=== PATIENT | female | born 1990 | race Asian ===

== ENCOUNTER 2025-08-28 06:22 | Emergency (ER) | payer SELFPAY ==
[~2025-08-28] VITALS: Ht 160 cm; Wt 56.8 kg
[2025-08-28 06:28] VITALS: BP 125/73; PULSE 92; RESP 16; TEMP 98.3; O2SAT 97
[2025-08-28] MEDS: ACETAMINOPHEN 500 MG TABLET PO ONE (07:00)
[2025-08-28] MEDS ORDERED: ACET-66 PO (07:15)
[2025-08-28] MEDS ORDERED: LORA1TAB25 PO (07:15)
== END 2025-08-28 07:34 | disposition home or self-care (01) ==
LOC: EMS 06:22
DX: S63.501A Unspecified sprain of right wrist, initial encounter (principal); S00.03XA Contusion of scalp, initial encounter; S80.01XA Contusion of right knee, initial encounter; R22.31 Localized swelling, mass and lump, right upper limb; F43.9 Reaction to severe stress, unspecified; V89.2XXA Person injured in unspecified motor-vehicle accident, traffic, initial encounter; Y93.89 Activity, other specified; Y92.410 Unspecified street and highway as the place of occurrence of the external cause; Y99.8 Other external cause status
CPT/HCPCS: 99283